=== PATIENT | male | born 1995 | race Caucasian/White ===

== ENCOUNTER 2016-09-16 14:51 | Emergency (ER) | payer SELFPAY ==
--- NOTE | 2016-09-16 14:57 | ER Document Report ---
ED Medical Screen (RME) - General Stated Complaint: ABDOMINAL SWELLING Time seen by provider: 14:55 Mode of Arrival: Ambulatory Information source: Patient Notes: 21-year-old male resents to ED for a painful bulge in his right lower abdomen. States he has nausea no vomiting. Denies any fevers. Consult to Dr. Hernandez for the assessment he recommended labs and ultrasound. I have greeted and performed a rapid initial assessment of this patient. A comprehensive ED assessment and evaluation of the patient, analysis of test results and completion of medical decision making process will be conducted by an additional ED providers. TRAVEL OUTSIDE OF THE [place] IN LAST 30 DAYS: No - Related Data Allergies/Adverse Reactions: No Known Allergies Allergy (Verified 09/16/16 14:52) Past Medical History - Past Medical History Cardiac Medical History: Denies: Hx Atrial Fibrillation, Hx Congestive Heart Failure, Hx Coronary Artery Disease Pulmonary Medical History: Denies: Hx Asthma, Hx Bronchitis, Hx COPD, Hx Pneumonia Neurological Medical History: Denies: Hx Cerebrovascular Accident, Hx Migraine, Hx Seizures Endocrine Medical History: Denies: Hx Diabetes Mellitus Type 1, Hx Diabetes Mellitus Type 2, Hx Graves' Disease, Hx Hyperthyroidism Renal/ Medical History: Reports: Hx Kidney Stones Malignancy Medical History: Denies Hx Bone Cancer, Denies Hx Brain Cancer, Denies Hx Colorectal Cancer, Denies Hx Leukemia GI Medical History: Denies: Hx Cirrhosis, Hx Crohn's Disease, Hx Diverticulitis , Hx Gastritis Musculoskeltal Medical History: Denies Hx Arthritis, Denies Hx Fibromyalgia, Denies Hx Gout, Denies Hx Multiple Sclerosis, Reports Hx Musculoskeletal Trauma Skin Medical History: Denies Hx Cellulitis, Denies Hx Eczema, Denies Hx MRSA Psychiatric Medical History: Denies: Hx Anxiety, Hx Attention Deficit Hyperactivity Disorder, Hx Bipolar Disorder Traumatic Medical History: Reports: Hx Fractures - Multiple, Hx Pneumothorax Past Surgical History: Reports: Hx Orthopedic Surgery - facial reconstruction - Immunizations Immunizations up to date: Yes Hx Diphtheria, Pertussis, Tetanus Vaccination: Yes
[2016-09-16] MEDS ORDERED: IBUPROFEN 600 MG TABLET PO ONE (15:08)
[2016-09-16 15:31] LABS: ABSOLUTE EOSINOPHILS # (AUTO) 0.3 10^3/uL (0.0-0.6); ABSOLUTE LYMPHOCYTES (AUTO) 1.6 10^3/uL (0.5-4.7); ABSOLUTE MONOCYTES (AUTO) 0.2 10^3/uL (0.1-1.4); ABSOLUTE NEUT (AUTO) 5.3 10^3/uL (1.7-8.2); BASOPHILS % (AUTO) 0.4 % (0-2); EOSINOPHILS % (AUTO) 4.4 % (0-6); HEMATOCRIT 46.8 % (37.9-51.0); HEMOGLOBIN 15.5 g/dL (13.5-17.0); HGB HCT DIFFERENCE -0.3; LYMPHOCYTES % (AUTO) 21.9 % (13-45); MEAN CORPUSCULAR HEMOGLOBIN 31.2 pg (27.0-33.4); MEAN CORPUSCULAR HGB CONC 33.1 g/dL (32.0-36.0); MEAN CORPUSCULAR VOLUME 94 fl (80-97); RED BLOOD COUNT 4.96 10^6/uL (4.35-5.55); RED CELL DISTRIBUTION WIDTH 13.5 % (11.5-14.0); SEGMENTED NEUTROPHILS % (AUTO) 70.3 % (42-78); WHITE BLOOD COUNT 7.5 10^3/uL (4.0-10.5)
[2016-09-16 15:41] LABS: AMORPHOUS SEDIMENT,URINE TRACE /HPF; APPEARANCE,URINE TURBID; BILIRUBIN,URINE NEGATIVE (NEGATIVE); GLUCOSE, URINE NEGATIVE (NEGATIVE); KETONES,URINE NEGATIVE (NEGATIVE); LEUKOCYTE ESTERASE,URINE NEGATIVE (NEGATIVE); NITRITE,URINE NEGATIVE (NEGATIVE); PROTEIN,URINE NEGATIVE (NEGATIVE); URINE SPECIFIC GRAVITY 1.016; UROBILINOGEN,URINE NEGATIVE mg/dL (<2.0)
[2016-09-16] MEDS ORDERED: ONDANSETRON HCL INJ/PF 4 MG/2 ML SDV IV ONE (15:58)
[2016-09-16] MEDS ORDERED: MORPHINE SULFATE 10 MG/ML INJ IV ONE (15:58)
[2016-09-16 16:07] LABS: ALANINE AMINOTRANSFERASE 223 U/L (21-72); ALBUMIN 4.3 g/dL (3.5-5.0); ALKALINE PHOSPHATASE 68 U/L (38-126); ANION GAP 12 (5-19); ASPARTATE AMINO TRANSFERASE 317 U/L (17-59); BILIRUBIN,TOTAL 0.5 mg/dL (0.2-1.3); BLOOD UREA NITROGEN 11 mg/dL (7-20); CALCIUM 9.5 mg/dL (8.4-10.2); CARBON DIOXIDE 33 mmol/L (22-30); CHLORIDE 100 mmol/L (98-107); CREATININE RESULT 1.13 mg/dL (0.52-1.25); GLUCOSE 112 mg/dL (75-110); LIPASE 171.9 U/L (23-300); POTASSIUM 4.4 mmol/L (3.6-5.0); SODIUM 144.9 mmol/L (137-145)
--- NOTE | 2016-09-16 16:16 | ER Document Report ---
ED GI/ - General Time seen by provider: 16:20 Mode of Arrival: Ambulatory Information source: Patient TRAVEL OUTSIDE OF THE [place] IN LAST 30 DAYS: No - HPI Patient complains to provider of: Abdominal pain Onset: This morning Timing/Duration: Gradual, Persistent Associated symptoms: Nausea <LORI BLACK - Last Filed: 09/16/16 17:28> <SAPPHIRECADEN HOSKINS ESMER - Last Filed: 09/16/16 21:51> - General Chief Complaint: Abdominal Pain Stated Complaint: ABDOMINAL SWELLING Notes: Patient is a 21 year old male presenting to the emergency department with complaints of abdominal pain. Patient states that his pain started this morning and that while sitting at his computer work he felt some sharp pains to his right side. Patient states that his pain is exacerbated with sitting up or bending over. Patient states that his pain is the fourth and the surface of his abdomen. Patient also complains of some nausea. Patient's mother states that she found out about the abdominal pain around 14:15 this afternoon. Patient's abdominal pain is on the right side. Patient describes his right side of his abdomen to move like "jelly" when rubbing your hand across it and states that the left side does not move "like jelly." Patient does not have any pain on the left side of his abdomen. Patient has no previous abdominal surgeries. Patient has no known allergies. (LORI BLACK) - Related Data Allergies/Adverse Reactions: No Known Allergies Allergy (Verified 09/16/16 14:52) Past Medical History - General Information source: Patient - Social History Smoking Status: Current Every Day Smoker Chew tobacco use (# tins/day): No Frequency of alcohol use: Occasional Drug Abuse: None Family History: None Patient has suicidal ideation: No Patient has homicidal ideation: No Renal/ Medical History: Reports: Hx Kidney Stones Musculoskeltal Medical History: Reports Hx Musculoskeletal Trauma Traumatic Medical History: Reports: Hx Fractures - Multiple, Hx Pneumothorax Past Surgical History: Reports: Hx Orthopedic Surgery - facial reconstruction - Immunizations Immunizations up to date: Yes Hx Diphtheria, Pertussis, Tetanus Vaccination: Yes <LORI BLACK - Last Filed: 09/16/16 17:28> Review of Systems - Review of Systems Constitutional: No symptoms reported EENT: No symptoms reported Cardiovascular: No symptoms reported Respiratory: No symptoms reported Gastrointestinal: See HPI, Abdominal pain, Nausea Genitourinary: No symptoms reported Male Genitourinary: No symptoms reported Musculoskeletal: No symptoms reported Skin: No symptoms reported Hematologic/Lymphatic: No symptoms reported Neurological/Psychological: No symptoms reported -: Yes All other systems reviewed and negative <LORI BLACK - Last Filed: 09/16/16 17:28> Physical Exam - Vital signs Interpretation: Normal - General General appearance: Appears well, Alert In distress: Mild - HEENT Head: Normocephalic, Atraumatic Eyes: Normal Pupils: PERRL Mucous membranes: Normal - Respiratory Respiratory status: No respiratory distress Chest status: Nontender Breath sounds: Normal Chest palpation: Normal - Cardiovascular Rhythm: Regular Heart sounds: Normal auscultation Murmur: No - Abdominal Inspection: Normal Distension: No distension Bowel sounds: Normal Tenderness: Tender - Right abdomen is tender to palpation Organomegaly: No organomegaly - Back Back: Normal, Nontender - Extremities General upper extremity: Normal inspection, Normal ROM, Normal strength General lower extremity: Normal inspection, Normal ROM, Normal strength - Neurological Neuro grossly intact: Yes Cognition: Normal Orientation: AAOx4 [place] Coma Scale Eye Opening: Spontaneous [place] Coma Scale Verbal: Oriented [place] Coma Scale Motor: Obeys Commands [place] Coma Scale Total: 15 Speech: Normal - Psychological Associated symptoms: Normal affect, Normal mood - Skin Skin Temperature: Warm Skin Moisture: Dry <LORI BLACK - Last Filed: 09/16/16 17:28> Course - Laboratory Result Diagrams: 09/16/16 15:00 09/16/16 15:00 <WAYNELORI - Last Filed: 09/16/16 17:28> - Laboratory Result Diagrams: 09/16/16 15:00 09/16/16 15:00 <CADEN BOLDEN - Last Filed: 09/16/16 21:51> - Re-evaluation Re-evalutation: 09/16/16 Patient with tenderness to palpation over his right lower abdomen. No evidence for hernia. No genital pain. CT with no acute findings. Will likely rectus muscle injury. Patient is eating in the room and feels better. He would like to go home. Stable for discharge. Return if any worsening or concerning symptoms. (CADEN BOLDEN) - Vital Signs Vital signs: Temp Pulse Resp BP Pulse Ox 98.3 F 76 16 107/76 98 09/16/16 19:10 09/16/16 19:10 09/16/16 19:10 09/16/16 19:10 09/16/16 19:10 (LORI BLACK) (CADEN BOLDEN) - Laboratory Laboratory results interpreted by me: 09/16/16 15:00 Carbon Dioxide 33 H Glucose 112 H AST 317 H ALT 223 H (LORI BLACK) (CADEN BOLDEN) Discharge <LORI BLACK - Last Filed: 09/16/16 17:28> <CADEN BOLDEN - Last Filed: 09/16/16 21:51> - Discharge Clinical Impression: Strain of rectus abdominis muscle Qualifiers: Encounter type: initial encounter Qualified Code(s): S39.011A - Strain of muscle, fascia and tendon of abdomen, initial encounter Condition: Stable Disposition: HOME, SELF-CARE Instructions: Muscle Strain ([facility]) Forms: Return to Work Scribe Attestation: 09/16/16 21:51 I personally performed the services described in the documentation, reviewed and edited the documentation which was dictated to the scribe in my presence, and it accurately records my words and actions. (CADEN BOLDEN) Scribe Documentation - Scribe Written by Jean:Andrae Black 09/16/16 17:30 acting as scribe for :: Shawn <LORI BLACK - Last Filed: 09/16/16 17:28>
[2016-09-16 19:18] VITALS: BP 107/76
== END 2016-09-16 19:10 | disposition home or self-care (01) ==
LOC: ER 14:51
DX: S39.011A Strain of muscle, fascia and tendon of abdomen, initial encounter (principal); R10.9 Unspecified abdominal pain; R11.0 Nausea; F17.200 Nicotine dependence, unspecified, uncomplicated; X58.XXXA Exposure to other specified factors, initial encounter; Z87.442 Personal history of urinary calculi
CPT/HCPCS: 99284; 96374; 96375; 36415; 83690; 85025; 80053; 81001; 74177; J2270; J2405

== ENCOUNTER 2016-11-10 02:28 | Emergency (ER) | payer SELFPAY ==
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
[2016-11-10 03:07] LABS: BLOOD UREA NITROGEN 12 mg/dL (7-20); CALCIUM 9.6 mg/dL (8.4-10.2); CHLORIDE 103 mmol/L (98-107); CREATININE RESULT 1.21 mg/dL (0.52-1.25); GLUCOSE 105 mg/dL (75-110)
[2016-11-10 03:08] LABS: ALCOHOL < 10 mg/dL (NONE DETECTED)
[2016-11-10 03:14] LABS: CARBON DIOXIDE 24 mmol/L (22-30); SODIUM 146.6 mmol/L (137-145)
[2016-11-10 03:17] LABS: ANION GAP 20 (5-19)
[2016-11-10] MEDS ORDERED: TETRACAINE HCL 0.5% OPH SOLN 2 ML OD ONE (04:29)
[2016-11-10 05:46] VITALS: BP 121/77
== END 2016-11-10 05:54 | disposition home or self-care (01) ==
LOC: ER 02:28
DX: S02.2XXA Fracture of nasal bones, initial encounter for closed fracture (principal); Y04.2XXA Assault by strike against or bumped into by another person, initial encounter; M25.512 Pain in left shoulder; R51 Headache; R41.0 Disorientation, unspecified; F41.9 Anxiety disorder, unspecified
CPT/HCPCS: 99285; 36415; 80307; 80048; 73030; 70450; 70486; 72125; L0120

== ENCOUNTER 2017-02-06 10:36 | Emergency (ER) | payer SELFPAY ==
[2017-02-06] MEDS ORDERED: IBUPROFEN 800 MG TABLET PO ONE (11:30)
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
--- NOTE | 2017-02-06 12:32 | RADIOLOGY REPORT (SQ) ---
EXAM DESCRIPTION: SHOULDER LEFT 2 OR MORE VIEWS COMPLETED DATE/TIME: 02/06/2017 12:18 pm REASON FOR STUDY: left shoulder pain, hx of dislocation COMPARISON: 11/10/2016. NUMBER OF VIEWS: Three views. TECHNIQUE: Internal rotation, external rotation, and Y view images acquired of the left shoulder. LIMITATIONS: None. FINDINGS: MINERALIZATION: Normal. BONES: No acute fracture or dislocation. No worrisome bone lesions. JOINTS: No dislocation. VISUALIZED LUNGS AND RIBS: No pneumothorax. No rib fracture. SOFT TISSUES: No radiopaque foreign body. OTHER: No other significant finding. IMPRESSION: NEGATIVE STUDY OF THE LEFT SHOULDER. NO RADIOGRAPHIC EVIDENCE OF ACUTE INJURY. TECHNICAL DOCUMENTATION: JOB ID: [id number] [employer]- All Rights Reserved
[2017-02-06 13:13] VITALS: BP 106/68
== END 2017-02-06 13:13 | disposition home or self-care (01) ==
LOC: ER 10:36
DX: R68.84 Jaw pain (principal); M25.512 Pain in left shoulder; F17.210 Nicotine dependence, cigarettes, uncomplicated
CPT/HCPCS: 99283

== ENCOUNTER 2017-08-26 18:03 | Emergency (ER) | payer SELFPAY ==
--- NOTE | 2017-08-26 18:46 | ER Document Report ---
ED Medical Screen (RME) - General Chief Complaint: Rectal Pain Stated Complaint: RECTAL PAIN Time Seen by Provider: 08/26/17 18:42 Notes: 22-year-old male patient four-day history of rectal pain. States he had an external hemorrhoid that he could feel about 14 days ago, it seems to have gone away but now a little bit up inside it is quite tender. He has had an external hemorrhoid incised and drained in the past. I have greeted and performed a rapid initial assessment of this patient. A comprehensive ED assessment and evaluation of the patient, analysis of test results and completion of the medical decision making process will be conducted by additional ED providers. TRAVEL OUTSIDE OF THE [place] IN LAST 30 DAYS: No - Related Data Allergies/Adverse Reactions: No Known Allergies Allergy (Verified 08/26/17 18:04) Past Medical History - Social History Chew tobacco use (# tins/day): No Frequency of alcohol use: Occasional Drug Abuse: None - Past Medical History Cardiac Medical History: Denies: Hx Atrial Fibrillation, Hx Congestive Heart Failure, Hx Coronary Artery Disease Pulmonary Medical History: Denies: Hx Asthma, Hx Bronchitis, Hx COPD, Hx Pneumonia Neurological Medical History: Denies: Hx Cerebrovascular Accident, Hx Migraine, Hx Seizures Endocrine Medical History: Denies: Hx Diabetes Mellitus Type 1, Hx Diabetes Mellitus Type 2, Hx Graves' Disease, Hx Hyperthyroidism Renal/ Medical History: Reports: Hx Kidney Stones. Denies: Hx Peritoneal Dialysis Malignancy Medical History: Denies Hx Bone Cancer, Denies Hx Brain Cancer, Denies Hx Colorectal Cancer, Denies Hx Leukemia GI Medical History: Denies: Hx Cirrhosis, Hx Crohn's Disease, Hx Diverticulitis , Hx Gastritis Musculoskeltal Medical History: Denies Hx Arthritis, Denies Hx Fibromyalgia, Denies Hx Gout, Denies Hx Multiple Sclerosis, Reports Hx Musculoskeletal Trauma Skin Medical History: Denies Hx Cellulitis, Denies Hx Eczema, Denies Hx MRSA Psychiatric Medical History: Denies: Hx Anxiety, Hx Attention Deficit Hyperactivity Disorder, Hx Bipolar Disorder Traumatic Medical History: Reports: Hx Fractures - Multiple, Hx Pneumothorax Past Surgical History: Reports: Hx Orthopedic Surgery - facial reconstruction - Immunizations Immunizations up to date: Yes Hx Diphtheria, Pertussis, Tetanus Vaccination: Yes Physical Exam - Vital signs Vitals: Temp Pulse Resp BP Pulse Ox 98.2 F 86 14 109/73 97 08/26/17 18:11 08/26/17 18:11 08/26/17 18:11 08/26/17 18:11 08/26/17 18:11 Course - Vital Signs Vital signs: Temp Pulse Resp BP Pulse Ox 98.2 F 86 14 109/73 97 08/26/17 18:11 08/26/17 18:11 08/26/17 18:11 08/26/17 18:11 08/26/17 18:11
[2017-08-26] MEDS ORDERED: DOCUSATE SODIUM 100 MG CAPSULE PO ONE (19:21)
[2017-08-26] MEDS ORDERED: HYDROCODONE/ACETAMINOPHEN 5-325 MG (6 TAB/ER DISP) PO PRN (19:22)
--- NOTE | 2017-08-26 19:27 | ER Document Report ---
ED GI/ - General Chief Complaint: Rectal Pain Stated Complaint: RECTAL PAIN Time Seen by Provider: 08/26/17 18:42 Notes: Patient is a 22-year-old male that comes emergency department for chief complaint of rectal pain. He states it is been bothering him intermittently for the past month but more so over the past 4 days. He reports pain with bowel movement. He admits that he is frequently constipated, has not had a bowel movement in a couple of days, sometimes has gone weeks without having a bowel movement. He has had hemorrhoid incision about 6 months ago. He denies fever or chills, abdominal pain, nausea or vomiting. He denies any daily medications. TRAVEL OUTSIDE OF THE [place] IN LAST 30 DAYS: No - Related Data Allergies/Adverse Reactions: No Known Allergies Allergy (Verified 08/26/17 18:04) Past Medical History - General Information source: Patient - Social History Smoking Status: Current Every Day Smoker Chew tobacco use (# tins/day): No Smoking Education Provided: Yes - <3 min Frequency of alcohol use: Occasional Drug Abuse: None Lives with: Family Family History: None Patient has suicidal ideation: No Patient has homicidal ideation: No - Past Medical History Cardiac Medical History: Denies: Hx Atrial Fibrillation, Hx Congestive Heart Failure, Hx Coronary Artery Disease Pulmonary Medical History: Denies: Hx Asthma, Hx Bronchitis, Hx COPD, Hx Pneumonia Neurological Medical History: Denies: Hx Cerebrovascular Accident, Hx Migraine, Hx Seizures Endocrine Medical History: Denies: Hx Diabetes Mellitus Type 1, Hx Diabetes Mellitus Type 2, Hx Graves' Disease, Hx Hyperthyroidism Renal/ Medical History: Reports: Hx Kidney Stones. Denies: Hx Peritoneal Dialysis Malignancy Medical History: Denies Hx Bone Cancer, Denies Hx Brain Cancer, Denies Hx Colorectal Cancer, Denies Hx Leukemia GI Medical History: Denies: Hx Cirrhosis, Hx Crohn's Disease, Hx Diverticulitis , Hx Gastritis Musculoskeltal Medical History: Denies Hx Arthritis, Denies Hx Fibromyalgia, Denies Hx Gout, Denies Hx Multiple Sclerosis, Reports Hx Musculoskeletal Trauma Skin Medical History: Denies Hx Cellulitis, Denies Hx Eczema, Denies Hx MRSA Psychiatric Medical History: Denies: Hx Anxiety, Hx Attention Deficit Hyperactivity Disorder, Hx Bipolar Disorder Traumatic Medical History: Reports: Hx Fractures - Multiple, Hx Pneumothorax Past Surgical History: Reports: Hx Orthopedic Surgery - facial reconstruction - Immunizations Immunizations up to date: Yes Hx Diphtheria, Pertussis, Tetanus Vaccination: Yes Review of Systems - Review of Systems Constitutional: No symptoms reported EENT: No symptoms reported Cardiovascular: No symptoms reported Respiratory: No symptoms reported Gastrointestinal: See HPI Genitourinary: No symptoms reported Male Genitourinary: No symptoms reported Musculoskeletal: No symptoms reported Skin: No symptoms reported Hematologic/Lymphatic: No symptoms reported Neurological/Psychological: No symptoms reported Physical Exam - Vital signs Vitals: Temp Pulse Resp BP Pulse Ox 98.2 F 86 14 109/73 97 08/26/17 18:11 08/26/17 18:11 08/26/17 18:11 08/26/17 18:11 08/26/17 18:11 Interpretation: Normal - General General appearance: Appears well, Alert - HEENT Head: Normocephalic, Atraumatic Eyes: Normal Pupils: PERRL - Respiratory Respiratory status: No respiratory distress Chest status: Nontender Breath sounds: Normal Chest palpation: Normal - Cardiovascular Rhythm: Regular Heart sounds: Normal auscultation Murmur: No - Abdominal Inspection: Normal Distension: No distension Bowel sounds: Normal Tenderness: Nontender. No: Tender, Guarding Organomegaly: No organomegaly - Rectal Tenderness: Yes Stool: No: Black, Bloody Hemorrhoids: External - External hemorrhoid located at approximately the 8 o' clock position, no bleeding, not obviously thrombosed, no surrounding induration , erythema, or other abnormality noted - Back Back: Normal, Nontender. No: Tender - Extremities General upper extremity: Normal inspection, Nontender, Normal ROM, Normal strength General lower extremity: Normal inspection, Nontender, Normal ROM, Normal strength - Neurological Neuro grossly intact: Yes Cognition: Normal Orientation: AAOx4 [place] Coma Scale Eye Opening: Spontaneous [place] Coma Scale Verbal: Oriented [place] Coma Scale Motor: Obeys Commands [place] Coma Scale Total: 15 Speech: Normal Motor strength normal: LUE, RUE, LLE, RLE Sensory: Normal - Psychological Associated symptoms: Normal affect, Normal mood - Skin Skin Temperature: Warm Skin Moisture: Dry Skin Color: Normal Course - Re-evaluation Re-evalutation: Soft abdomen, well-appearing patient, external hemorrhoid present on examination without thrombosis, significant swelling, bleeding. Rectal examination otherwise unremarkable. No erythema or induration suggesting abscess. - Vital Signs Vital signs: Temp Pulse Resp BP Pulse Ox 98.4 F 77 18 116/79 96 08/26/17 19:37 08/26/17 19:37 08/26/17 19:37 08/26/17 19:37 08/26/17 19:37 Discharge - Discharge Clinical Impression: Rectal pain Condition: Stable Disposition: HOME, SELF-CARE Additional Instructions: No infection is seen at this time, examination indicates multiple hemorrhoids, recommendation is to take the stool softener Colace as prescribed, use the topical creams as prescribed, only take the pain medicine at night to help you sleep (taking too much of this will make your symptoms worse). Increase fiber in your diet and drink plenty of water. Follow-up with primary care. Return for any concerning or worsening symptoms including severe pain, heavy bleeding, fever, or any other concerning symptoms. Prescriptions: Docusate Sodium [Colace 100 mg Capsule] 100 mg PO ASDIR PRN #30 capsule PRN Reason: Hydrocortisone/Pramoxine [Analpram Hc 1% Cream] 30 gm RC TID PRN #1 cream.appl PRN Reason:
[2017-08-26 19:43] VITALS: BP 116/79
== END 2017-08-26 19:40 | disposition home or self-care (01) ==
LOC: ER 18:03
DX: K62.89 Other specified diseases of anus and rectum (principal); K59.00 Constipation, unspecified; F17.200 Nicotine dependence, unspecified, uncomplicated
CPT/HCPCS: 99283

== ENCOUNTER 2018-01-22 13:01 | Emergency (ER) | payer SELFPAY ==
[2018-01-22 13:16] VITALS: BP 119/72
--- NOTE | 2018-01-22 14:07 | ER Document Report ---
ED General - General Chief Complaint: Rectal Pain Stated Complaint: RECTAL PAIN Time Seen by Provider: 01/22/18 13:53 TRAVEL OUTSIDE OF THE [place] IN LAST 30 DAYS: No - HPI Notes: Normally healthy 22-year-old man presents with 10/10 rectal pain burning in nature without radiation has been getting worse and worse for 1 week. Patient is a lengthy history of external hemorrhoids in the past has been seen up at [place] for them. Denies fever chills or any trauma to his rectum denies receptive intercourse with men - Related Data Allergies/Adverse Reactions: No Known Allergies Allergy (Verified 01/22/18 13:02) Past Medical History - Social History Smoking Status: Never Smoker Chew tobacco use (# tins/day): No Frequency of alcohol use: None Drug Abuse: None Family History: None Patient has suicidal ideation: No Patient has homicidal ideation: No - Past Medical History Cardiac Medical History: Denies: Hx Atrial Fibrillation, Hx Congestive Heart Failure, Hx Coronary Artery Disease Pulmonary Medical History: Denies: Hx Asthma, Hx Bronchitis, Hx COPD, Hx Pneumonia Neurological Medical History: Denies: Hx Cerebrovascular Accident, Hx Migraine, Hx Seizures Endocrine Medical History: Denies: Hx Diabetes Mellitus Type 1, Hx Diabetes Mellitus Type 2, Hx Graves' Disease, Hx Hyperthyroidism Renal/ Medical History: Reports: Hx Kidney Stones. Denies: Hx Peritoneal Dialysis Malignancy Medical History: Denies Hx Bone Cancer, Denies Hx Brain Cancer, Denies Hx Colorectal Cancer, Denies Hx Leukemia GI Medical History: Denies: Hx Cirrhosis, Hx Crohn's Disease, Hx Diverticulitis , Hx Gastritis Musculoskeltal Medical History: Denies Hx Arthritis, Denies Hx Fibromyalgia, Denies Hx Gout, Denies Hx Multiple Sclerosis, Reports Hx Musculoskeletal Trauma Skin Medical History: Denies Hx Cellulitis, Denies Hx Eczema, Denies Hx MRSA Psychiatric Medical History: Denies: Hx Anxiety, Hx Attention Deficit Hyperactivity Disorder, Hx Bipolar Disorder Traumatic Medical History: Reports: Hx Fractures - Multiple, Hx Pneumothorax Past Surgical History: Reports: Hx Orthopedic Surgery - facial reconstruction - Immunizations Immunizations up to date: Yes Hx Diphtheria, Pertussis, Tetanus Vaccination: Yes Review of Systems - Review of Systems Notes: REVIEW OF SYSTEMS: CONSTITUTIONAL: -fevers, -chills EENT: -eye pain, -difficulty swallowing, -nasal congestion CARDIOVASCULAR: -chest pain, -syncope. RESPIRATORY: -cough, -SOB GASTROINTESTINAL: -abdominal pain, -nausea, -vomiting, -diarrhea GENITOURINARY: -dysuria, -hematuria MUSCULOSKELETAL: -back pain, -neck pain SKIN: -rash or skin lesions. HEMATOLOGIC: -easy bruising or bleeding. LYMPHATIC: -swollen, enlarged glands. NEUROLOGICAL: -altered mental status or loss of consciousness, -headache, - neurologic symptoms PSYCHIATRIC: -anxiety, -depression. ALL OTHER SYSTEMS REVIEWED AND NEGATIVE. Physical Exam - Vital signs Vitals: Temp Pulse Resp BP Pulse Ox 98.7 F 64 14 119/72 99 01/22/18 13:15 01/22/18 13:15 01/22/18 13:15 01/22/18 13:15 01/22/18 13:15 - Notes Notes: PHYSICAL EXAMINATION: GENERAL: Well-appearing, well-nourished and in no acute distress. HEAD: Atraumatic, normocephalic. EYES: Pupils equal round and reactive to light, extraocular movements intact, sclera anicteric, conjunctiva are normal. ENT: nares patent, oropharynx clear without exudates. Moist mucous membranes. NECK: Normal range of motion, supple without lymphadenopathy LUNGS: Breath sounds clear to auscultation bilaterally and equal. No wheezes rales or rhonchi. HEART: Regular rate and rhythm without murmurs ABDOMEN: Soft, nontender, normoactive bowel sounds. No guarding, no rebound. No masses appreciated. EXTREMITIES: Normal range of motion, no pitting or edema. No cyanosis. NEUROLOGICAL: Cranial nerves grossly intact. Normal speech, normal gait. Normal sensory and motor exams. PSYCH: Normal mood, normal affect. SKIN: Warm, Dry, normal turgor, no rashes or lesions noted. : External normal hemorrhoid noted on rectum, nonthrombosed skin appears normal very tender to palpation. Course - Re-evaluation Re-evalutation: 01/22/18 14:09 Young man presents with external hemorrhoid. Nonthrombosed. Stable vital signs afebrile reassuring exam. Will be given prescription for oral analgesia, stool softener, hydrocortisone cream. Given referral to local community clinic. - Vital Signs Vital signs: Temp Pulse Resp BP Pulse Ox 98.7 F 64 14 119/72 99 01/22/18 13:15 01/22/18 13:15 01/22/18 13:15 01/22/18 13:15 01/22/18 13:15 Discharge - Discharge Clinical Impression: External hemorrhoids Condition: Stable Disposition: HOME, SELF-CARE Instructions: Hemorrhoids ([facility]) [facility]errals: [facility] [NO LOCAL MD] - Follow up as needed
== END 2018-01-22 14:09 | disposition home or self-care (01) ==
LOC: ER 13:01
DX: K64.4 Residual hemorrhoidal skin tags (principal); K62.89 Other specified diseases of anus and rectum
CPT/HCPCS: 99282

== ENCOUNTER 2018-02-13 13:01 | Emergency (ER) | payer SELFPAY ==
[2018-02-13] MEDS ORDERED: IBUPROFEN 600 MG TABLET PO ONE (13:50)
--- NOTE | 2018-02-13 13:51 | ER Document Report ---
ED Hand/Wrist Injury - General Chief Complaint: Finger Injury Stated Complaint: FINGER INJURY Time Seen by Provider: 02/13/18 13:50 Mode of Arrival: Ambulatory Information source: Patient Notes: 22-year-old male presents to ED for complaint of right index finger pain. He states he smashed his finger between 2 pieces of metal 3 days ago. He states he has increased pain over the last couple days. He states his pain with any palpation to the finger. There is no deformity noted at the end of the finger but it is a little swollen. Is alert and oriented respirations regular and unlabored speaking in full sentences walking with a even steady gait. TRAVEL OUTSIDE OF THE [place] IN LAST 30 DAYS: No - HPI Injury to: Index finger Onset: Other - 3 days Where: Home, Outdoors Timing: Still present, Worse Quality of pain: Throbbing Severity: Moderate Pain Level: 4 Context: Blow, Swelling - Related Data Allergies/Adverse Reactions: No Known Allergies Allergy (Verified 02/13/18 13:02) Past Medical History - General Information source: Patient - Social History Smoking Status: Current Every Day Smoker Cigarette use (# per day): Yes - 5-6 cigarettes a day Chew tobacco use (# tins/day): No Smoking Education Provided: Yes - 4 minutes Frequency of alcohol use: Social Drug Abuse: None Occupation: None Lives with: Family Family History: None Patient has suicidal ideation: No Patient has homicidal ideation: No - Past Medical History Cardiac Medical History: Reports: None Pulmonary Medical History: Reports: None EENT Medical History: Reports: None Neurological Medical History: Reports: None Endocrine Medical History: Reports: None Renal/ Medical History: Reports: Hx Kidney Stones Malignancy Medical History: Reports None GI Medical History: Reports: None Musculoskeltal Medical History: Reports Hx Musculoskeletal Trauma Skin Medical History: Reports None Psychiatric Medical History: Reports: None Traumatic Medical History: Reports: Hx Fractures - Multiple, Hx Pneumothorax Infectious Medical History: Reports: None Past Surgical History: Reports: Hx Orthopedic Surgery - facial reconstruction, Other - Chest tube - Immunizations Immunizations up to date: Yes Hx Diphtheria, Pertussis, Tetanus Vaccination: Yes Review of Systems - Review of Systems Musculoskeletal: Other - Right index finger pain to the end of the finger swollen mild erythema Skin: Other - Erythema and swelling to the end of the right index finger Physical Exam - Vital signs Vitals: Temp Pulse Resp BP Pulse Ox 99.1 F 74 20 118/71 100 02/13/18 13:10 02/13/18 13:10 02/13/18 13:10 02/13/18 13:10 02/13/18 13:10 - Extremities Hand: Tender, No evidence of human bite, No evidence of FB, Swelling - Index finger, Other. No: Abrasion, Deformity, Dislocation, Instability, Laceration, Nail injury - Skin Skin Temperature: Warm Skin Moisture: Dry Skin Color: Normal, Ecchymosis Location of irregularity: Extremities - Index finger Character of irregularity: Erythematous Irregularity with: Swelling, Tenderness Course - Re-evaluation Re-evalutation: 02/13/18 21:29 Discussed with patient. Written report of x-ray given to patient to follow-up with his primary doctor. Patient was treated with Keflex for the mild erythema to the end of the finger for cellulitis. - Vital Signs Vital signs: Temp Pulse Resp BP Pulse Ox 98.3 F 64 14 115/63 98 02/13/18 15:07 02/13/18 15:07 02/13/18 15:07 02/13/18 15:07 02/13/18 15:07 - Diagnostic Test Radiology reviewed: Image reviewed, Reports reviewed Discharge - Discharge Clinical Impression: Finger injury Qualifiers: Encounter type: initial encounter Laterality: right Qualified Code(s): S69.91XA - Unspecified injury of right wrist, hand and finger(s), initial encounter Condition: Stable Disposition: HOME, SELF-CARE Instructions: Family Physicians / Practices, Use of [id number]-[id number]-Dxvyuth Ibuprofen ([facility]) Additional Instructions: CONTUSION: Your injury has resulted in a contusion -- a crushing of the deep tissues. No injury to important structures was detected during the physician's exam. Contusions vary in the amount of pain they cause, and in the length of time required for healing. Typically, the area will become bruised, and will remain painful to touch for two or three weeks. However, most patients are back to working and playing within a few days. After the initial period of rest and cold-packs, your symptoms (together with the doctor's recommendations) will determine how rapidly you can get back to full activity. Usually this means "do what feels okay, but don't do things that hurt." If re-examination was recommended, it's important to follow up as instructed. Call the doctor or return any time if pain increases, if swelling becomes severe, if you develop numbness or weakness in an injured extremity, or if any other alarming symptoms occur. CELLULITIS: You have an infection of your skin and underlying soft tissues called cellulitis. This is due to bacteria, which can enter through any break in the skin, or even through an irritated hair follicle. Untreated, cellulitis will usually worsen. Antibiotics are required. Usually, warm packs or warm soaks, and elevation of the infected area are recommended. You should start getting better within 24 to 36 hours. Most infections respond quickly to the right medication. Follow-up care is important, however, to check for abscess (boil) formation, unsuspected foreign body, or resistant infection. If you develop fever, chills, or if the area of infection is becoming rapidly more swollen or painful, call the doctor at once. Cephalexin The antibiotic you've been prescribed is a member of the cephalosporin class. This type of antibiotic covers a wide variety of infections, including those of the skin, lungs, and urinary tract. It's useful for staph infections. This antibiotic is slightly similar to the penicillin family. In rare cases , a person who is allergic to penicillin will also be allergic to this medication. If you have had a severe allergic reaction to penicillin, and have not taken this antibiotic since that time, notify your doctor. Antibiotics which cover many germs ("broad spectrum" antibiotics) are more likely to cause diarrhea or "yeast" infections. Women prone to vaginal yeast problems may suffer an attack after taking this antibiotic. In infants, oral thrush (white spots "stuck" on the cheek) or yeast diaper rash may result. See your doctor if these problems occur. Call at once if you develop itching, hives , shortness of breath, or lightheadedness. Epsom Salt Soaks Soak the wound area in a container of warm epsom salt water. If you can't get the wound area into a bucket or mirza, use a folded towel soaked in the epsom salt solution and apply to the area. Use clean hot tap water (about the temperature of a very warm bath), mixing in about one (1) teaspoon for every pint of water. Two gallon --> 16 teaspoons Epsom Salts One gallon --> 8 teaspoons Epsom Salts Two quarts --> 4 teaspoons Epsom Salts One quart --> 2 teaspoons Epsom Salts Soak the wound for about 20 minutes while gently moving it around in the water. Repeat this four (4) times a day. USE OF TYLENOL (ACETAMINOPHEN): Acetaminophen may be taken for pain relief or fever control. It's much safer than aspirin, offering a wider range of "safe" dosages. It is safe during . Some brand names are Tylenol, Panadol, Datril, Anacin 3, Tempra, and Liquiprin. Acetaminophen can be repeated every four hours. The following are maximum recommended dosages: WEIGHT Dose Drops Elixir Chewable( 80mg) (LBS.) drprs=droppers tsp=teaspoon 6 40 mg 0.4 ml (1/2) 6-11 80 mg 0.8 ml (full) tsp 1 tab 12-16 120 mg 1 1/2 drprs 3/4 tsp 1 1/2 tabs 17-23 160 mg 2 drprs 1 tsp 2 tabs 24-30 240 mg 3 drprs 1 1/2 tsp 3 tabs 30-35 320 mg 2 tsp 4 tabs 36-41 360 mg 2 1/4 tsp 4 1/2 tabs 42-47 400 mg 2 1/2 tsp 5 tabs 48-53 480 mg 3 tsp 6 tabs 54-59 520 mg 3 1/4 tsp 6 1/2 tabs 60-64 560 mg 3 1/2 tsp 7 tabs 65-70 600 mg 3 3/4 tsp 7 1/2 tabs 71-76 640 mg 4 tsp 8 tabs 77-82 720 mg 4 1/2 tsp 9 tabs 83-88 800 mg 5 tsp 10 tabs >89 pounds or adults 650 mg to 900 mg Acetaminophen can be repeated every four hours. Maximum dose not to exceed 4000 mg a day. These maximum recommended dosages are slightly higher than the dosages written on the product container, but these dosages are very safe and below the toxic dosage for acetaminophen. ORAL NARCOTIC MEDICATION: You have been given a norco for pain control. This medication is a narcotic. It's best taken with food, as nausea can result if taken on an empty stomach. Don't operate machinery or drive within six hours of taking this medication. Do not combine this medicine with alcohol, or with any medication which can cause sedation (such as cold tablets or sleeping pills) unless you get permission from the physician. Narcotics tend to cause constipation. If possible, drink plenty of fluids and eat a diet high in fiber and fruits. FOLLOW-UP CARE: If you have been referred to a physician for follow-up care, call the physician s office for an appointment as you were instructed or within the next two days. If you experience worsening or a significant change in your symptoms, notify the physician immediately or return to the Emergency Department at any time for re-evaluation. Prescriptions: Cephalexin Monohydrate [Keflex 500 mg Capsule] 500 mg PO QID #20 capsule Forms: Smoking Cessation Education Referrals: YUKI LEAL MD [ACTIVE STAFF] - Follow up as needed
--- NOTE | 2018-02-13 14:54 | RADIOLOGY REPORT (SQ) ---
EXAM DESCRIPTION: FINGER RIGHT COMPLETED DATE/TIME: 02/13/2018 2:06 pm REASON FOR STUDY: right index finger injury COMPARISON: None. NUMBER OF VIEWS: Three views. TECHNIQUE: AP, lateral, and oblique images acquired of the right second finger. LIMITATIONS: None. FINDINGS: MINERALIZATION: Normal. BONES: No acute fracture or dislocation. There is some deformity of the distal end of the middle pha lanx of the 2nd digit which could be congenital in nature or related to previous trauma. There are s ome minimal subcortical cystic changes at the level of DIP joint of the 2nd digit. SOFT TISSUES: No soft tissue swelling. No foreign body. OTHER: No other significant finding. IMPRESSION: No definite evidence for acute fracture or dislocation. Other findings as noted above COMMENT: SITE OF TRAUMA/COMPLAINT MARKED/STAMP COMPLETED: Yes TECHNICAL DOCUMENTATION: JOB ID: [id number] [employer]- All Rights Reserved Reading location - IP/workstation name: [email or web address]
[2018-02-13] MEDS ORDERED: HYDROCODONE/ACETAMINOPHEN 5-325 MG TABLET PO ONE (15:06)
[2018-02-13] MEDS ORDERED: CEPHALEXIN 500 MG CAPSULE PO ONE (15:06)
[2018-02-13 15:10] VITALS: BP 115/63
== END 2018-02-13 15:18 | disposition home or self-care (01) ==
LOC: ER 13:01
DX: S69.91XA Unspecified injury of right wrist, hand and finger(s), initial encounter (principal); W23.0XXA Caught, crushed, jammed, or pinched between moving objects, initial encounter; F17.210 Nicotine dependence, cigarettes, uncomplicated; Z87.442 Personal history of urinary calculi
CPT/HCPCS: 99283; 99406

== ENCOUNTER 2018-04-04 19:45 | Emergency (ER) | payer SELFPAY ==
--- NOTE | 2018-04-04 20:54 | ER Document Report ---
ED General - General Chief Complaint: Fall Injury Stated Complaint: FELL OFF ROOF Time Seen by Provider: 04/04/18 20:16 TRAVEL OUTSIDE OF THE [place] IN LAST 30 DAYS: No - HPI Notes: 22-year-old male states he fell off a roof around 4 PM. He was trying to fix a leak and slipped on a tarp. He tried to catch himself on the particle board roof of the porch on the trailer with his right arm and right chest wall. He continued to fall and landed on his back on the grassy ground. He did not hit his head. No LOC. No SOB. no vomiting or abdominal pain. - Related Data Allergies/Adverse Reactions: No Known Allergies Allergy (Verified 02/13/18 13:02) Past Medical History - Social History Smoking Status: Current Every Day Smoker Chew tobacco use (# tins/day): No Frequency of alcohol use: Occasional Drug Abuse: None Family History: None Patient has suicidal ideation: No Patient has homicidal ideation: No - Past Medical History Cardiac Medical History: Denies: Hx Atrial Fibrillation, Hx Congestive Heart Failure, Hx Coronary Artery Disease Pulmonary Medical History: Denies: Hx Asthma, Hx Bronchitis, Hx COPD, Hx Pneumonia Neurological Medical History: Denies: Hx Cerebrovascular Accident, Hx Migraine, Hx Seizures Endocrine Medical History: Denies: Hx Diabetes Mellitus Type 1, Hx Diabetes Mellitus Type 2, Hx Graves' Disease, Hx Hyperthyroidism Renal/ Medical History: Reports: Hx Kidney Stones. Denies: Hx Peritoneal Dialysis Malignancy Medical History: Denies Hx Bone Cancer, Denies Hx Brain Cancer, Denies Hx Colorectal Cancer, Denies Hx Leukemia GI Medical History: Denies: Hx Cirrhosis, Hx Crohn's Disease, Hx Diverticulitis , Hx Gastritis Musculoskeletal Medical History: Denies Hx Arthritis, Denies Hx Fibromyalgia, Denies Hx Gout, Denies Hx Multiple Sclerosis, Reports Hx Musculoskeletal Trauma Skin Medical History: Denies Hx Cellulitis, Denies Hx Eczema, Denies Hx MRSA Psychiatric Medical History: Denies: Hx Anxiety, Hx Attention Deficit Hyperactivity Disorder, Hx Bipolar Disorder Traumatic Medical History: Reports: Hx Fractures - Multiple, Hx Pneumothorax Past Surgical History: Reports: Hx Orthopedic Surgery - facial reconstruction, Other - Chest tube - Immunizations Immunizations up to date: Yes Hx Diphtheria, Pertussis, Tetanus Vaccination: Yes Review of Systems - Review of Systems Notes: Constitutional: Negative for fever. HENT: Negative for sore throat. Eyes: Negative for visual changes. Cardiovascular: Right chest wall pain. Respiratory: Negative for shortness of breath. Gastrointestinal: Negative for abdominal pain, vomiting or diarrhea. Genitourinary: Negative for dysuria. Musculoskeletal: Positive for right forearm pain, left wrist pain, right rib pain. No back or neck pain. Skin: Negative for rash. Neurological: Negative for headaches, weakness or numbness. 10 point ROS negative except as marked above and in HPI. Physical Exam - Vital signs Vitals: Temp Pulse BP Pulse Ox 98.3 F 86 92/68 L 99 04/04/18 19:59 04/04/18 19:59 04/04/18 19:59 04/04/18 19:59 - Notes Notes: PHYSICAL EXAMINATION: GENERAL: Well-appearing, well-nourished and in no acute distress. HEAD: Atraumatic, normocephalic. EYES: Pupils equal round and reactive to light, extraocular movements intact, conjunctiva are normal. ENT: nares patent, oropharynx clear without exudates. Moist mucous membranes. NECK: Normal range of motion, supple without lymphadenopathy. No midline tenderness or step-offs LUNGS: Breath sounds clear to auscultation bilaterally and equal. No wheezes rales or rhonchi. HEART: Regular rate and rhythm, abrasions right chest wall with mild tenderness. No crepitus or deformity. ABDOMEN: Soft, nontender, normoactive bowel sounds. No guarding, no rebound. No masses appreciated. EXTREMITIES: Normal range of motion, no pitting or edema. No cyanosis. Abrasion right forearm with tenderness to dorsal aspect. Abrasion left volar wrist over median nerve with tenderness. Some limited range of motion due to pain. Mild pain with axial loading of the thumb. No midline back tenderness or step-offs. NEUROLOGICAL: Cranial nerves grossly intact. Normal speech, normal gait. Normal sensory and motor exams. PSYCH: Normal mood, normal affect. SKIN: Warm, Dry, normal turgor, no rashes or lesions noted. Course - Re-evaluation Re-evalutation: 04/04/18 20:54 X-rays ordered. No head injury or neck pain. 04/04/18 20:55 Tetanus up-to-date 04/04/18 21:30 No fractures. Pain treated. Forearm X-Ray 04/04/18 20:47 IMPRESSION: NEGATIVE STUDY OF THE RIGHT FOREARM. NO RADIOGRAPHIC EVIDENCE OF ACUTE INJURY. Ribs w/Chest X-Ray 04/04/18 20:47 IMPRESSION: NO PNEUMOTHORAX. NO DISPLACED RIB FRACTURES. Wrist X-Ray 04/04/18 20:47 IMPRESSION: NEGATIVE STUDY OF THE LEFT WRIST. NO RADIOGRAPHIC EVIDENCE OF ACUTE INJURY. At this time will discharge with return precautions and follow-up recommendations. Verbal discharge instructions given a the bedside and opportunity for questions given. Medication warnings reviewed. Patient is in agreement with this plan and has verbalized understanding of return precautions and the need for primary care follow-up in the next 24-72 hours. - Vital Signs Vital signs: Temp Pulse Resp BP Pulse Ox 98.3 F 86 92/68 L 99 04/04/18 19:59 04/04/18 19:59 04/04/18 19:59 04/04/18 19:59 Discharge - Discharge Clinical Impression: Abrasions of multiple sites Arm pain Qualifiers: Laterality: unspecified laterality Qualified Code(s): M79.603 - Pain in arm, unspecified Condition: Good Disposition: HOME, SELF-CARE Instructions: Abrasions ([facility]) Additional Instructions: Alternate ice and heat to sore areas. Monitor abrasions for signs of infection. Return for any worsening or concerning symptoms. Take Motrin and Tylenol as needed for pain. Referrals: GALLO BALTAZAR MD [COMMUNITY BASED STAFF] - Follow up in 3-5 days
--- NOTE | 2018-04-04 21:13 | RADIOLOGY REPORT (SQ) ---
EXAM DESCRIPTION: FOREARM RIGHT COMPLETED DATE/TIME: 04/04/2018 9:04 pm REASON FOR STUDY: fall off roof, right forearm, left wrist, and rib COMPARISON: None. NUMBER OF VIEWS: Two views. TECHNIQUE: Two radiographic images acquired of the right forearm, including elbow and wrist in at le ast one projection. LIMITATIONS: None. FINDINGS: MINERALIZATION: Normal. BONES: No acute fracture. No worrisome bone lesions. SOFT TISSUES: No obvious swelling or foreign body. OTHER: No other significant finding. IMPRESSION: NEGATIVE STUDY OF THE RIGHT FOREARM. NO RADIOGRAPHIC EVIDENCE OF ACUTE INJURY. TECHNICAL DOCUMENTATION: JOB ID: [id number] [employer]- All Rights Reserved Reading location - IP/workstation name: [email or web address]
--- NOTE | 2018-04-04 21:13 | RADIOLOGY REPORT (SQ) ---
EXAM DESCRIPTION: WRIST LEFT 3 VIEWS COMPLETED DATE/TIME: 04/04/2018 9:04 pm REASON FOR STUDY: fall off roof, right forearm, left wrist, and rib COMPARISON: None. NUMBER OF VIEWS: Three views. TECHNIQUE: AP, lateral, and oblique radiographic images acquired of the left wrist. LIMITATIONS: None. FINDINGS: MINERALIZATION: Normal. BONES: No acute fracture or dislocation. No worrisome bone lesions. Normal alignment. SOFT TISSUES: No soft tissue swelling. No foreign body. OTHER: No other significant finding. IMPRESSION: NEGATIVE STUDY OF THE LEFT WRIST. NO RADIOGRAPHIC EVIDENCE OF ACUTE INJURY. TECHNICAL DOCUMENTATION: JOB ID: [id number] [employer]- All Rights Reserved Reading location - IP/workstation name: [email or web address]
--- NOTE | 2018-04-04 21:14 | RADIOLOGY REPORT (SQ) ---
EXAM DESCRIPTION: RIBS RIGHT W/PA CHEST COMPLETED DATE/TIME: 04/04/2018 9:04 pm REASON FOR STUDY: fall off roof, right forearm, left wrist, and rib COMPARISON: None. TECHNIQUE: Frontal view of the chest and additional views of the right ribs acquired. NUMBER OF VIEWS: Three view. LIMITATIONS: None. FINDINGS: FRONTAL CXR: No pneumothorax. No pleural effusion. No atelectasis or infiltrates. RIBS: No displaced rib fractures. No lytic or blastic bony lesions. OTHER: No other significant finding. IMPRESSION: NO PNEUMOTHORAX. NO DISPLACED RIB FRACTURES. COMMENT: SITE OF TRAUMA/COMPLAINT MARKED/STAMP COMPLETED: YES. TECHNICAL DOCUMENTATION: JOB ID: [id number] [employer]- All Rights Reserved Reading location - IP/workstation name: [email or web address]
[2018-04-04 22:47] VITALS: BP 103/70
== END 2018-04-04 22:46 | disposition home or self-care (01) ==
LOC: ER 19:45
DX: M79.631 Pain in right forearm (principal); M25.532 Pain in left wrist; R07.81 Pleurodynia; R07.89 Other chest pain; W13.2XXA Fall from, out of or through roof, initial encounter
CPT/HCPCS: 99283

== ENCOUNTER 2019-02-20 20:05 | Emergency (ER) | payer MEDICAID ==
--- NOTE | 2019-02-20 21:19 | RADIOLOGY REPORT (SQ) ---
EXAM DESCRIPTION: XR RIGHT FOOT 3 OR MORE VIEWS COMPLETED DATE/TME: 02/20/2019 20:34 CLINICAL HISTORY: 23 years, Male, pain COMPARISON: None. NUMBER OF VIEWS: TECHNIQUE: LIMITATIONS: None. FINDINGS: There is dorsal soft tissue swelling. No fracture or dislocation. No evidence of arthritis. Mineralization of bone appears normal. IMPRESSION: Dorsal soft tissue swelling. copyright 2010 [employer] All Rights Reserved
[2019-02-20] MEDS ORDERED: HYDROCODONE/ACETAMINOPHEN 5-325 MG TABLET PO ONE (22:34)
--- NOTE | 2019-02-20 22:37 | ER Document Report ---
HPI - HPI Time Seen by Provider: 02/20/19 22:28 Pain Level: 4 Context: Patient is a 23-year-old male who presents to the emergency department with a chief complaint of right foot pain. Patient states earlier tonight he was running outside when he stepped into a hole and fell forward. Patient states he has had significant swelling to the top of the right foot. Patient states he has been able to ambulate but with severe pain. Patient states he is ice to the foot. Patient denies obvious deformity. Patient denies numbness or tingling to his toes. - REPRODUCTIVE Reproductive: DENIES: : Past Medical History - General Information source: Patient - Social History Smoking Status: Unknown if Ever Smoked Family History: None - Past Medical History Cardiac Medical History: Reports: None Denies: Hx Atrial Fibrillation, Hx Congestive Heart Failure, Hx Coronary Artery Disease Pulmonary Medical History: Reports: None Denies: Hx Asthma, Hx Bronchitis, Hx COPD, Hx Pneumonia EENT Medical History: Reports: None Neurological Medical History: Reports: None. Denies: Hx Cerebrovascular Accident, Hx Migraine, Hx Seizures Endocrine Medical History: Reports: None. Denies: Hx Diabetes Mellitus Type 1, Hx Diabetes Mellitus Type 2, Hx Graves' Disease, Hx Hyperthyroidism Renal/ Medical History: Reports: Hx Kidney Stones. Denies: Hx Peritoneal Dialysis Malignancy Medical History: Reports None, Denies Hx Bone Cancer, Denies Hx Brain Cancer, Denies Hx Colorectal Cancer, Denies Hx Leukemia GI Medical History: Reports: None. Denies: Hx Cirrhosis, Hx Crohn's Disease, Hx Diverticulitis, Hx Gastritis Musculoskeletal Medical History: Denies Hx Arthritis, Denies Hx Fibromyalgia, Denies Hx Gout, Denies Hx Multiple Sclerosis, Reports Hx Musculoskeletal Trauma Skin Medical History: Reports None, Denies Hx Cellulitis, Denies Hx Eczema, Denies Hx MRSA Psychiatric Medical History: Reports: None Denies: Hx Anxiety, Hx Attention Deficit Hyperactivity Disorder, Hx Bipolar Disorder Traumatic Medical History: Reports: Hx Fractures - Multiple, Hx Pneumothorax Infectious Medical History: Reports: None Past Surgical History: Reports: Hx Orthopedic Surgery - facial reconstruction, Other - Chest tube - Immunizations Immunizations up to date: Yes Hx Diphtheria, Pertussis, Tetanus Vaccination: Yes Vertical Provider Document - CONSTITUTIONAL Agree With Documented VS: Yes Exam Limitations: No Limitations General Appearance: No Apparent Distress - INFECTION CONTROL TRAVEL OUTSIDE OF THE [place] IN LAST 30 DAYS: No - HEENT HEENT: Atraumatic, Normocephalic - NECK Neck: Normal Inspection - RESPIRATORY Respiratory: Breath Sounds Normal, No Respiratory Distress - CARDIOVASCULAR Cardiovascular: Regular Rate - GI/ABDOMEN Gastrointestinal: Abdomen Soft, Abdomen Non-Tender - MUSCULOSKELETAL/EXTREMETIES Notes: Edema and ecchymosis noted to the dorsal aspect of the right foot, no erythema, no laceration. No obvious deformity. Patient has a strong +2 dorsalis pedis and posterior tibial pulse. Patient has good flexion and extension of the foot. Patient is able to move his ankle and full range of motion. - NEURO Level of Consciousness: Awake, Alert, Appropriate - DERM Integumentary: Warm, Dry Course - Vital Signs Vital signs: Temp Pulse Resp BP Pulse Ox 98.6 F 66 20 117/72 99 02/20/19 21:26 02/20/19 21:26 02/20/19 21:26 02/20/19 21:26 02/20/19 21:26 Procedures - Immobilization Right Foot Pre-Proc Neuro Vasc Exam: Normal Immobilizer type: Hernan wrap, Crutches Performed by: RN Post-Proc Neuro Vasc Exam: Normal, Unchanged from pre-exam Alignment checked and good: Yes Discharge - Discharge Clinical Impression: Foot sprain Qualifiers: Encounter type: initial encounter Laterality: right Qualified Code(s): S93.601A - Unspecified sprain of right foot, initial encounter Condition: Stable Disposition: HOME, SELF-CARE Instructions: Ice Packs ([facility]), Oral Narcotic Medication ([facility]), Sprain ([facility]) Additional Instructions: Today he was seen in the emergency department for right foot injury. We did obtain an x-ray which was negative for any dislocation or acute fracture. It does appear that you did sprain your foot. Please use cold packs and elevate the foot. Please use the Hernan bandage and crutches for comfort. A sprain can take weeks to heal so please rest as much as possible. Into the emergency department for severe pain, numbness, loss of function in the injured area. Take Tylenol and ibuprofen as needed for pain. Try to stay off of the foot as much as possible. Sprain Your injury is a sprain. A sprain results from stretching or tearing of the ligaments, usually from a twisting injury. The ligaments will require time and protection in order to heal properly. Many sprains are quite disabling and should be taken seriously. The usual initial treatment of sprains is cold packs, elevation, and rest of the injured area. Your physician has assessed the seriousness of your ligament injury, and has outlined a treatment plan. Understand that this treatment may change, depending on how you progress. If a re-examination was recommended, it is important that you follow up as instructed. Call the doctor any time if there is severe pain, numbness, or loss of function in the injured area.
[2019-02-20 22:38] VITALS: BP 123/83
== END 2019-02-20 22:55 | disposition home or self-care (01) ==
LOC: ER 20:05
DX: S93.601A Unspecified sprain of right foot, initial encounter (principal); M79.671 Pain in right foot; M79.89 Other specified soft tissue disorders; W19.XXXA Unspecified fall, initial encounter
CPT/HCPCS: 99283

== ENCOUNTER 2019-05-13 22:24 | Emergency (ER) | payer MEDICAID ==
[2019-05-13 22:49] VITALS: BP 116/65
--- NOTE | 2019-05-13 22:55 | ER Document Report ---
ED Substance Abuse / Acc. OD - General Chief Complaint: ETOH Abuse Stated Complaint: ETOH Time Seen by Provider: 05/13/19 22:55 Mode of Arrival: Stretcher Information source: Patient, Emergency Med Personnel Cannot obtain history due to: Intoxicated Notes: HISTORY OF PRESENT ILLNESS: Patient is a 23-year-old male with no significant past medical history who presents with alcohol intoxication and marijuana abuse. Patient is unable to give complete history and details given his intoxication. EMS reports that the patient became heavily intoxicated after drinking "about 12 beers," police also arrived and stated the patient was being very agitated. Onset: Prior to arrival Provocation: Alcohol Quality: Intoxication, agitation Radiation: None Severity: Moderate Timing: Constant SI/HI: None Hallucinations: None Current therapist: None Current treatment: None REVIEW OF SYSTEMS: CONSTITUTIONAL : Denies fever or chills, no sweats. Denies recent illness. EENT: Denies eye, ear, throat, or mouth pain or symptoms. Denies nasal or sinus congestion. CARDIOVASCULAR: Denies chest pain. RESPIRATORY: Denies cough, cold, or chest congestion. Denies shortness of breath, difficulty breathing, or wheezing. GASTROINTESTINAL: Denies abdominal pain. Denies nausea, vomiting, or diarrhea. Denies constipation. GENITOURINARY: Denies difficulty urinating, painful urination, burning, frequency, or blood in urine. FEMALE GENITOURINARY: Denies vaginal bleeding, abnormal or irregular periods. Last menstrual period MUSCULOSKELETAL: Denies neck or back pain or joint pain or swelling. SKIN: Denies rash or skin lesions. HEMATOLOGIC : Denies easy bruising or bleeding. LYMPHATIC: Denies swollen, enlarged glands. NEUROLOGICAL: Denies altered mental status or loss of consciousness. Denies headache. Denies weakness or paralysis or loss of use of either side. Denies problems with gait or speech. Denies sensory or motor loss. PSYCHIATRIC: Positive for alcohol abuse. Denies suicidal/homicidal thoughts. Denies anxiety or stress or depression. All other systems reviewed and negative. PHYSICAL EXAMINATION: GENERAL: Intoxicated-appearing, disheveled, well-nourished and in no acute distress. HEAD: Atraumatic, normocephalic. No scalp deformity, depression, or crepitance. EYES: Pupils are 3 mm and equal/round/reactive to light, extraocular movements intact, sclera anicteric, conjunctiva are normal. ENT: Nares patent bilaterally, oropharynx clear without exudates or palatal petechia. Moist mucous membranes. No tonsil hypertrophy. NECK: Normal range of motion, supple without lymphadenopathy. LUNGS: Breath sounds present, equal, and clear to auscultation bilaterally. No wheezes, rales, or rhonchi. HEART: Regular rate and rhythm without murmurs, rubs, or gallops. 2+ peripheral pulses. Normal capillary refill. ABDOMEN: Soft, nontender, nondistended. Normoactive bowel sounds. No guarding, no rebound. No masses appreciated. BACK: Normal contour, no midline tenderness. Rectal exam deferred. GENITAL/PELVC: Deferred. EXTREMITIES: Normal range of motion, no pitting or edema. No cyanosis. NEUROLOGICAL: No focal neurological deficits. Moves all extremities spontaneously and on command. PSYCH: Normal mood, normal affect. No suicidal thoughts/ideations. No homicidal thoughts/ideations. No hallucinations. SKIN: Warm, dry, normal turgor, no rashes or lesions noted. ASSESSMENT AND PLAN: This patient is a 23-year-old male who presents with acute alcohol intoxication. 1. Will obtain urine, drug screen, and ethanol panel. 2. Will observe overnight and reassess for disposition in the morning. TRAVEL OUTSIDE OF THE [place] IN LAST 30 DAYS: No - HPI Patient complains to provider of: Alcohol abuse Onset: Just prior to arrival Onset/Duration: Gradual Quality of pain: No pain Severity: Moderate Pain Level: Denies Overdose of: Alcohol Associated Symptoms: Nausea/vomiting Similar symptoms previously: No Recently seen / treated by doctor: No - Related Data Allergies/Adverse Reactions: No Known Allergies Allergy (Verified 02/13/18 13:02) Past Medical History - General Information source: Patient, Emergency Med Personnel Cannot obtain history due to: Intoxicated - Social History Smoking Status: Unknown if Ever Smoked Frequency of alcohol use: Heavy Drug Abuse: Marijuana Lives with: Alone Family History: None Patient has suicidal ideation: No Patient has homicidal ideation: No - Past Medical History Cardiac Medical History: Reports: None Denies: Hx Atrial Fibrillation, Hx Congestive Heart Failure, Hx Coronary Artery Disease Pulmonary Medical History: Reports: None Denies: Hx Asthma, Hx Bronchitis, Hx COPD, Hx Pneumonia EENT Medical History: Reports: None Neurological Medical History: Reports: None. Denies: Hx Cerebrovascular Accident, Hx Migraine, Hx Seizures Endocrine Medical History: Reports: None. Denies: Hx Diabetes Mellitus Type 1, Hx Diabetes Mellitus Type 2, Hx Graves' Disease, Hx Hyperthyroidism Renal/ Medical History: Reports: Hx Kidney Stones. Denies: Hx Peritoneal Dialysis Malignancy Medical History: Reports None, Denies Hx Bone Cancer, Denies Hx Brain Cancer, Denies Hx Colorectal Cancer, Denies Hx Leukemia GI Medical History: Reports: None. Denies: Hx Cirrhosis, Hx Crohn's Disease, Hx Diverticulitis, Hx Gastritis Musculoskeletal Medical History: Denies Hx Arthritis, Denies Hx Fibromyalgia, Denies Hx Gout, Denies Hx Multiple Sclerosis, Reports Hx Musculoskeletal Trauma Skin Medical History: Reports None, Denies Hx Cellulitis, Denies Hx Eczema, Denies Hx MRSA Psychiatric Medical History: Reports: None Denies: Hx Anxiety, Hx Attention Deficit Hyperactivity Disorder, Hx Bipolar Disorder Traumatic Medical History: Reports: Hx Fractures - Multiple, Hx Pneumothorax Infectious Medical History: Reports: None Past Surgical History: Reports: Hx Orthopedic Surgery - facial reconstruction, Other - Chest tube - Immunizations Immunizations up to date: Yes Hx Diphtheria, Pertussis, Tetanus Vaccination: Yes Review of Systems - Review of Systems Constitutional: No symptoms reported EENT: No symptoms reported Cardiovascular: No symptoms reported Respiratory: No symptoms reported Gastrointestinal: No symptoms reported Genitourinary: No symptoms reported Male Genitourinary: No symptoms reported Musculoskeletal: No symptoms reported Skin: No symptoms reported Hematologic/Lymphatic: No symptoms reported Neurological/Psychological: See HPI, Other - Alcohol intoxication -: Yes All other systems reviewed and negative Physical Exam - Vital signs Vitals: Resp BP 16 116/65 05/13/19 22:44 05/13/19 22:44 Interpretation: Normal Course - Re-evaluation Re-evalutation: 05/14/19 04:34 Will discharge the patient home with strict return precautions and follow-up with primary care. All results were explained to and discussed with the patient, and all questions addressed and answered. The patient voices both understanding and agreeing with the plan. - Vital Signs Vital signs: Temp Pulse Resp BP Pulse Ox 16 116/65 05/13/19 22:44 05/13/19 22:44 - Laboratory Laboratory results interpreted by me: 05/14/19 00:00 Serum Alcohol 333 H* Discharge - Discharge Clinical Impression: Alcohol intoxication Qualifiers: Complication of substance-induced condition: uncomplicated Qualified Code(s): F10.920 - Alcohol use, unspecified with intoxication, uncomplicated Condition: Good Disposition: HOME, SELF-CARE Instructions: Acute Alcohol Intoxication ([facility]) Additional Instructions: You have been evaluated in the Emergency Department for alcohol intoxication. While here, you had blood work that was normal and it is now safe to be discharged home. Please follow-up with your primary physician as instructed in one week to be rechecked. Return to the Emergency Department if you experience confusion, disorientation, difficulty walking, or any other concerning symptoms. Print Language: [place] Islander
[2019-05-14 01:02] LABS: APPEARANCE,URINE CLEAR; BILIRUBIN,URINE NEGATIVE (NEGATIVE); COLOR,URINE COLORLESS; GLUCOSE, URINE NEGATIVE (NEGATIVE); KETONES,URINE NEGATIVE (NEGATIVE); LEUKOCYTE ESTERASE,URINE NEGATIVE (NEGATIVE); NITRITE,URINE NEGATIVE (NEGATIVE); PROTEIN,URINE NEGATIVE (NEGATIVE); URINE SPECIFIC GRAVITY 1.002; UROBILINOGEN,URINE NEGATIVE mg/dL (<2.0)
[2019-05-14 01:14] LABS: URINE AMPHETAMINES SCREEN NEGATIVE; URINE BARBITURATES SCREEN NEGATIVE; URINE BENZODIAZEPINES SCREEN NEGATIVE; URINE COCAINE SCREEN NEGATIVE; URINE MARIJUANA (THC) SCREEN UNCONFIRMED POSITIVE; URINE METHADONE SCREEN NEGATIVE; URINE PHENCYCLIDINE SCREEN NEGATIVE
== END 2019-05-14 07:41 | disposition home or self-care (01) ==
LOC: ER 22:24
DX: F10.920 Alcohol use, unspecified with intoxication, uncomplicated (principal); F12.10 Cannabis abuse, uncomplicated; R45.1 Restlessness and agitation
CPT/HCPCS: 36415; 80307; 81001; 99284

== ENCOUNTER 2019-05-20 11:05 | Emergency (ER) | payer MEDICAID, OTHER ==
--- NOTE | 2019-05-20 11:23 | ER Document Report ---
ED Medical Screen (RME) - General Chief Complaint: Hemorrhoids Stated Complaint: POSSIBLE ABSCESS Time Seen by Provider: 05/20/19 11:21 TRAVEL OUTSIDE OF THE [place] IN LAST 30 DAYS: No - HPI Notes: 05/20/19 11:23 Patient is a 23-year-old male with a history of thrombosed external hemorrhoid in the past who presents complaining of an external hemorrhoid that is painful and possibly thrombosed again. Patient states that he has needed to cut open in the past. No fever. I have treated and performed a rapid initial assessment of this patient. A comprehensive ED assessment and evaluation of the patient, analysis of test results and completion of medical decision making process will be conducted by additional ED providers. PHYSICAL EXAMINATION: GENERAL: Well-appearing, well-nourished and in no acute distress. A&Ox4. Answers questions appropriately. - Related Data Allergies/Adverse Reactions: No Known Allergies Allergy (Verified 05/20/19 11:19) Past Medical History - Social History Chew tobacco use (# tins/day): No Frequency of alcohol use: Rare - Past Medical History Cardiac Medical History: Denies: Hx Atrial Fibrillation, Hx Congestive Heart Failure, Hx Coronary Artery Disease Pulmonary Medical History: Denies: Hx Asthma, Hx Bronchitis, Hx COPD, Hx Pneumonia Neurological Medical History: Denies: Hx Cerebrovascular Accident, Hx Migraine, Hx Seizures Endocrine Medical History: Denies: Hx Diabetes Mellitus Type 1, Hx Diabetes Mellitus Type 2, Hx Graves' Disease, Hx Hyperthyroidism Renal/ Medical History: Reports: Hx Kidney Stones. Denies: Hx Peritoneal Dialysis Malignancy Medical History: Denies Hx Bone Cancer, Denies Hx Brain Cancer, Denies Hx Colorectal Cancer, Denies Hx Leukemia GI Medical History: Denies: Hx Cirrhosis, Hx Crohn's Disease, Hx Diverticulitis, Hx Gastritis Musculoskeltal Medical History: Denies Hx Arthritis, Denies Hx Fibromyalgia, Denies Hx Gout, Denies Hx Multiple Sclerosis, Reports Hx Musculoskeletal Trauma Skin Medical History: Denies Hx Cellulitis, Denies Hx Eczema, Denies Hx MRSA Psychiatric Medical History: Denies: Hx Anxiety, Hx Attention Deficit Hyperactivity Disorder, Hx Bipolar Disorder Traumatic Medical History: Reports: Hx Fractures - Multiple, Hx Pneumothorax Past Surgical History: Reports: Hx Orthopedic Surgery - facial reconstruction, Other - Chest tube - Immunizations Immunizations up to date: Yes Hx Diphtheria, Pertussis, Tetanus Vaccination: Yes Physical Exam - Vital signs Vitals: Temp Pulse Resp BP Pulse Ox 98.0 F 69 18 131/62 H 100 05/20/19 11:10 05/20/19 11:10 05/20/19 11:10 05/20/19 11:10 05/20/19 11:10 Course - Vital Signs Vital signs: Temp Pulse Resp BP Pulse Ox 98.0 F 69 18 131/62 H 100 05/20/19 11:10 05/20/19 11:10 05/20/19 11:10 05/20/19 11:10 05/20/19 11:10
--- NOTE | 2019-05-20 13:52 | ER Document Report ---
ED General - General Chief Complaint: Hemorrhoids Stated Complaint: POSSIBLE ABSCESS Time Seen by Provider: 05/20/19 11:21 Primary Care Provider: ERNESTO CABRERA MD [Primary Care Provider] - Follow up as needed TRAVEL OUTSIDE OF THE [place] IN LAST 30 DAYS: No - HPI Notes: Patient is a 23-year-old male presents emergency department for evaluation of swelling around his rectum which he believes secondary to be a thrombosed hemorrhoid. He states he has had no real bleeding. Is still swollen and painful. He was concerned it could be an abscess. He has a history of thrombosed hemorrhoid in the past which required hemorrhoidectomy. - Related Data Allergies/Adverse Reactions: No Known Allergies Allergy (Verified 05/20/19 11:19) Past Medical History - General Information source: Patient - Social History Smoking Status: Current Every Day Smoker Chew tobacco use (# tins/day): No Frequency of alcohol use: Rare Family History: None Patient has suicidal ideation: No Patient has homicidal ideation: No - Past Medical History Cardiac Medical History: Denies: Hx Atrial Fibrillation, Hx Congestive Heart Failure, Hx Coronary Artery Disease Pulmonary Medical History: Denies: Hx Asthma, Hx Bronchitis, Hx COPD, Hx Pneumonia Neurological Medical History: Denies: Hx Cerebrovascular Accident, Hx Migraine, Hx Seizures Endocrine Medical History: Denies: Hx Diabetes Mellitus Type 1, Hx Diabetes Mellitus Type 2, Hx Graves' Disease, Hx Hyperthyroidism Renal/ Medical History: Reports: Hx Kidney Stones. Denies: Hx Peritoneal Dialysis Malignancy Medical History: Denies Hx Bone Cancer, Denies Hx Brain Cancer, Denies Hx Colorectal Cancer, Denies Hx Leukemia GI Medical History: Denies: Hx Cirrhosis, Hx Crohn's Disease, Hx Diverticulitis, Hx Gastritis Musculoskeletal Medical History: Denies Hx Arthritis, Denies Hx Fibromyalgia, Denies Hx Gout, Denies Hx Multiple Sclerosis, Reports Hx Musculoskeletal Trauma Skin Medical History: Denies Hx Cellulitis, Denies Hx Eczema, Denies Hx MRSA Psychiatric Medical History: Denies: Hx Anxiety, Hx Attention Deficit Hyperactivity Disorder, Hx Bipolar Disorder Traumatic Medical History: Reports: Hx Fractures - Multiple, Hx Pneumothorax Past Surgical History: Reports: Hx Orthopedic Surgery - facial reconstruction, Other - Chest tube - Immunizations Immunizations up to date: Yes Hx Diphtheria, Pertussis, Tetanus Vaccination: Yes Review of Systems - Review of Systems Constitutional: No symptoms reported EENT: No symptoms reported Cardiovascular: No symptoms reported Respiratory: No symptoms reported Gastrointestinal: No symptoms reported Genitourinary: No symptoms reported Musculoskeletal: No symptoms reported Skin: See HPI Neurological/Psychological: No symptoms reported Physical Exam - Vital signs Vitals: Temp Pulse Resp BP Pulse Ox 98.0 F 69 18 131/62 H 100 05/20/19 11:10 05/20/19 11:10 05/20/19 11:10 05/20/19 11:10 05/20/19 11:10 - Notes Notes: Vital signs reviewed, please refer to chart. Head is normocephalic, atraumatic. Pupils equal round, reactive to light. Neck is supple without meningismus. Heart is regular rate and rhythm. Lungs are clear to auscultation bilaterally. Abdomen is soft, nontender, normoactive bowel sounds throughout. Rectal exam reveals about a 1 cm area of erythema and firmness on the end of the rectum, slightly below purple, consistent with a thrombosed hemorrhoid. Course - Re-evaluation Re-evalutation: 05/20/19 16:12 Patient presents emergency department for evaluation. His findings are consistent with a thrombosed hemorrhoid. It is extremely small at this time, and actually more flat to the rectum then I would feel comfortable with having incised. This point will give patient symptomatic treatment and close follow- up. He is also encouraged to perhaps follow-up with surgery for further evaluation. Return to the ED with worsening or concerning symptoms of any sort. - Vital Signs Vital signs: Temp Pulse Resp BP Pulse Ox 98.0 F 65 18 101/67 99 05/20/19 13:58 05/20/19 13:58 05/20/19 11:10 05/20/19 13:58 05/20/19 13:58 Discharge - Discharge Clinical Impression: External hemorrhoid, thrombosed Condition: Stable Disposition: HOME, SELF-CARE Instructions: HC Hemorrhoid Cream ([facility]), Hemorrhoids ([facility]) Additional Instructions: Epsom salt baths. Avoid constipation. Take medication as prescribed. Follow- up with your primary care physician, consider follow-up with surgery for further treatment and evaluation. Return to the ED with worsening or new concerning symptoms. Prescriptions: Hydrocortisone Acetate [Anusol-Hc] 21 gm RC BID #1 oint..gm. Referrals: ERNESTO CABRERA MD [Primary Care Provider] - Follow up as needed
[2019-05-20 14:01] VITALS: BP 101/67
== END 2019-05-20 14:01 | disposition home or self-care (01) ==
LOC: ER 11:05
DX: K64.5 Perianal venous thrombosis (principal); F17.200 Nicotine dependence, unspecified, uncomplicated; Z87.442 Personal history of urinary calculi
CPT/HCPCS: 99282

== ENCOUNTER 2019-08-07 00:05 | Emergency (ER) | payer MEDICAID ==
[2019-08-07] MEDS ORDERED: LIDOCAINE 1% INJ-PF (10 MG/ML) 30 ML SDV INJ ONE ×2 (00:27→01:29)
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
[2019-08-07] MEDS ORDERED: HYDROCODONE/ACETAMINOPHEN 5-325 MG TABLET PO ONE (02:16)
[2019-08-07] MEDS ORDERED: AMOXICILLIN TRIHYD 250 MG CAPSULE PO ONE (02:16)
[2019-08-07] MEDS ORDERED: AMOXICILLIN TR/POT CLAVULANATE 500-125 MG TAB PO ONE (02:16)
[2019-08-07] MEDS ORDERED: IBUPROFEN 600 MG TABLET PO ONE (02:17)
[2019-08-07 02:34] VITALS: BP 111/69
== END 2019-08-07 02:42 | disposition home or self-care (01) ==
LOC: ER 00:05
DX: S01.511A Laceration without foreign body of lip, initial encounter (principal); Y04.2XXA Assault by strike against or bumped into by another person, initial encounter; Y92.009 Unspecified place in unspecified non-institutional (private) residence as the place of occurrence of the external cause; F17.200 Nicotine dependence, unspecified, uncomplicated
CPT/HCPCS: 12052; 99284; J3490 ×4

== ENCOUNTER 2019-08-12 16:15 | Emergency (ER) | payer MEDICAID ==
[2019-08-12 16:21] VITALS: BP 119/71
[2019-08-12] MEDS ORDERED: IBUPROFEN 600 MG TABLET PO ONE (16:58)
[2019-08-12] MEDS ORDERED: ACETAMINOPHEN 325 MG TABLET PO ONE (16:59)
--- NOTE | 2019-08-12 16:59 | ER Document Report ---
HPI - HPI Time Seen by Provider: 08/12/19 16:41 Pain Level: Denies Context: 24-year-old male presents for suture removal. They replaced 5 days ago with 2 absorbable is on the inside of his left upper lip and 2 on the outside of the lip. They have healed appropriately and there is no discharge, breath, warmth at the site. Patient denies any respiratory distress or airway obstruction, patient denies any other symptoms at this time other than some tenderness on the inside of his lip. No fevers - REPRODUCTIVE Reproductive: DENIES: : Past Medical History - Social History Smoking Status: Current Every Day Smoker Family History: None Patient has suicidal ideation: No Patient has homicidal ideation: No - Past Medical History Cardiac Medical History: Denies: Hx Atrial Fibrillation, Hx Congestive Heart Failure, Hx Coronary Artery Disease Pulmonary Medical History: Denies: Hx Asthma, Hx Bronchitis, Hx COPD, Hx Pneumonia Neurological Medical History: Denies: Hx Cerebrovascular Accident, Hx Migraine, Hx Seizures Endocrine Medical History: Denies: Hx Diabetes Mellitus Type 1, Hx Diabetes Mellitus Type 2, Hx Graves' Disease, Hx Hyperthyroidism Renal/ Medical History: Reports: Hx Kidney Stones. Denies: Hx Peritoneal Dialysis Malignancy Medical History: Denies Hx Bone Cancer, Denies Hx Brain Cancer, Den ies Hx Colorectal Cancer, Denies Hx Leukemia GI Medical History: Denies: Hx Cirrhosis, Hx Crohn's Disease, Hx Diverticulitis, Hx Gastritis Musculoskeletal Medical History: Denies Hx Arthritis, Denies Hx Fibromyalgia, Denies Hx Gout, Denies Hx Multiple Sclerosis, Reports Hx Musculoskeletal Trauma Skin Medical History: Denies Hx Cellulitis, Denies Hx Eczema, Denies Hx MRSA Psychiatric Medical History: Denies: Hx Anxiety, Hx Attention Deficit Hyperactivity Disorder, Hx Bipolar Disorder Traumatic Medical History: Reports: Hx Fractures - Multiple, Hx Pneumothorax Past Surgical History: Reports: Hx Orthopedic Surgery - facial reconstruction, Other - Chest tube - Immunizations Immunizations up to date: Yes Hx Diphtheria, Pertussis, Tetanus Vaccination: Yes Vertical Provider Document - INFECTION CONTROL TRAVEL OUTSIDE OF THE [place] IN LAST 30 DAYS: No - HEENT Mouth Diagram: 1 - 2 absorbable sutures removed just inside of the lip and 2 nonabsorbable was removed on the outside part of the lip. There was scabbing, no purulent discharge. Course - Vital Signs Vital signs: Temp Pulse Resp BP Pulse Ox 98.7 F 72 12 119/71 97 08/12/19 16:18 08/12/19 16:18 08/12/19 16:18 08/12/19 16:18 08/12/19 16:18 Discharge - Discharge Clinical Impression: Visit for suture removal Condition: Good Disposition: HOME, SELF-CARE Additional Instructions: You were seen for suture removal. The sutures were successfully removed. Please continue to do warm salt water gargles for the next several days until your lip completely heals. Please return to the emergency department if you develop lip swelling or redness, fevers, purulent discharge coming from the woun ds, or you have any other concerning symptoms. Referrals: ERNESTO CABRERA MD [Primary Care Provider] - Follow up as needed
== END 2019-08-12 17:03 | disposition home or self-care (01) ==
LOC: ER 16:15
DX: S01.511D Laceration without foreign body of lip, subsequent encounter (principal); X58.XXXD Exposure to other specified factors, subsequent encounter; F17.200 Nicotine dependence, unspecified, uncomplicated
CPT/HCPCS: 99281; J3490 ×2

== ENCOUNTER → 2020-02-18 | Outpatient (CLI) | payer MEDICAID ==
--- NOTE | 2020-02-18 17:13 | RADIOLOGY REPORT (SQ) ---
EXAM DESCRIPTION: SHOULDER RIGHT 2 OR MORE VIEWS IMAGES COMPLETED DATE/TIME: 02/18/2020 4:32 pm REASON FOR STUDY: INSTABILITY OF RT SHOULDER JOINT M25.311 OTHER INSTABILITY, RIGHT SHOULDER COMPARISON: None. NUMBER OF VIEWS: Three views. TECHNIQUE: Internal rotation, external rotation, and Y view images acquired of the right shoulder. LIMITATIONS: None. FINDINGS: MINERALIZATION: Normal. BONES: No acute fracture. No worrisome bone lesions. JOINTS: No dislocation. VISUALIZED LUNGS AND RIBS: No pneumothorax. No rib fracture. SOFT TISSUES: No radiopaque foreign body. OTHER: No other significant finding. IMPRESSION: NEGATIVE STUDY OF THE RIGHT SHOULDER. NO RADIOGRAPHIC EVIDENCE OF ACUTE INJURY. TECHNICAL DOCUMENTATION: JOB ID: [id number] 2010 [employer]- All Rights Reserved Reading location - IP/workstation name: [email or web address] FERNANDA
== END ==
LOC: OD 16:17
PROVIDERS: ATTEND Nurse Practitioner Family
DX: M25.311 Other instability, right shoulder (principal)